=== PATIENT | male | born 1980 | race Caucasian/White ===

== ENCOUNTER 2017-08-26 13:15 | Emergency (ER) | payer OTHER ==
[~2017-08-26] VITALS: Ht 177.8 cm; Wt 102.1 kg
[~2017-08-26 13:15] MED LIST: no home medications
--- NOTE | 2017-08-26 13:49 | PHYS DOC ---
Past History Past Medical History: No Pertinent History Past Surgical History: Appendectomy, Other Alcohol Use: None Drug Use: None Adult General Chief Complaint Chief Complaint: LOWER EXT PAIN HPI HPI 37-year-old male presents with right ankle pain after fall. The patient was walking down the stairs when he began to sneeze. He missed a step with his right foot and did a forward roll down 10 concrete stairs. He landed at the bottom of the stairs and was down his back. He denies hitting his head or losing consciousness. He laid there for a moment to make sure things seemed okay. When he went to stand up he had pain in the right heel. He stayed on the ground for a few minutes and the pain improved. He is able to walk on it but it continues to hurt. The patient has some general mild aching in his back and leg , but he believes this is just from the fall. The pain is minimal. He is only concerned about the ankle at this time. Review of Systems Review of Systems Constitutional: Denies fever or chills [] Eyes: Denies change in visual acuity, redness, or eye pain [] HENT: Denies nasal congestion or sore throat [] Respiratory: Denies cough or shortness of breath [] Cardiovascular: No additional information not addressed in HPI [] GI: Denies abdominal pain, nausea, vomiting, bloody stools or diarrhea [] : Denies dysuria or hematuria [] Musculoskeletal: right ankle pain[] Integument: Denies rash or skin lesions [] Neurologic: Denies headache, focal weakness or sensory changes [] Endocrine: Denies polyuria or polydipsia [] All other systems were reviewed and found to be within normal limits, except as documented in this note. Allergies Allergies Allergies Coded Allergies Type Severity Reaction Last Updated Verified No Known Drug Allergies 08/08/14 No Physical Exam Physical Exam Constitutional: Well developed, well nourished, no acute distress, non-toxic appearance. [] HENT: Normocephalic, atraumatic, bilateral external ears normal, oropharynx moist, no oral exudates, nose normal. [] Eyes: PERRLA, EOMI, conjunctiva normal, no discharge. [] Neck: Normal range of motion, no tenderness, supple, no stridor. [] Cardiovascular:Heart rate regular rhythm, no murmur [] Lungs & Thorax: Bilateral breath sounds clear to auscultation [] Abdomen: Bowel sounds normal, soft, no tenderness, no masses, no pulsatile masses. [] Skin: Warm, dry, no erythema, no rash. [] Back: No tenderness, no CVA tenderness. [] Extremities: Tenderness to the posterior aspect of the right ankle. No bruising or swelling.. [] Neurologic: Alert and oriented X 3, normal motor function, normal sensory function, no focal deficits noted. [] Psychologic: Affect normal, judgement normal, mood normal. [] Current Patient Data Vital Signs Vital Signs Date Time Temp Pulse Resp B/P (MAP) Pulse Ox O2 Delivery O2 Flow Rate FiO2 08/26/17 13:29 98.2 89 18 99 Room Air EKG EKG [] Radiology/Procedures Radiology/Procedures History: Fell down stairs today. Comparison: August 31, 2015. Findings: AP, lateral, and oblique views of the right ankle. No acute fracture or dislocation is identified. No focal soft tissue swelling is seen. Impression: No acute osseous abnormality identified. Electronically signed by: Fox Gonzalez MD (08/26/2017 1:55 PM) [facility][] Course & Med Decision Making Course & Med Decision Making Pertinent Labs and Imaging studies reviewed. (See chart for details) The patient's x-rays negative for fracture. His pain is likely just a contusion based on location and mechanism of injury. He has no other serious injuries. He is stable for discharge. [] Dragon Disclaimer Dragon Disclaimer This electronic medical record was generated, in whole or in part, using a voice recognition dictation system. Departure Departure: Referrals: LAN EL (PCP) RALEIGH JHAVERI DO August 26, 2017 13:49
--- NOTE | 2017-08-26 13:58 | RAD ---
History: Fell down stairs today. Comparison: August 31, 2015. Findings: AP, lateral, and oblique views of the right ankle. No acute fracture or dislocation is identified. No focal soft tissue swelling is seen. Impression: No acute osseous abnormality identified. Electronically signed by: Fox Gonzalez MD (08/26/2017 1:55 PM) [facility]
[2017-08-26 14:28] VITALS: BP 149/80
[2017-08-26] MEDS ORDERED: KETOROLAC 60 MG/2 ML VIAL. IM ONE (15:00)
== END 2017-08-26 14:56 | disposition home or self-care (01) ==
LOC: ER 13:15
DX: S99.911A Unspecified injury of right ankle, initial encounter (principal); W10.8XXA Fall (on) (from) other stairs and steps, initial encounter; Y93.01 Activity, walking, marching and hiking; Y99.8 Other external cause status; Y92.89 Other specified places as the place of occurrence of the external cause
CPT/HCPCS: 73610; 96372; 99284; J1885

== ENCOUNTER 2017-11-02 14:17 | Emergency (ER) | payer BC, OTHER ==
[~2017-11-02] VITALS: Ht 180.3 cm; Wt 104.3 kg
--- NOTE | 2017-11-02 14:56 | ED.ADGEN ---
Past History Past Medical History: No Pertinent History Past Surgical History: Appendectomy, Other Alcohol Use: None Drug Use: None Adult General Chief Complaint Chief Complaint Right foot pain and swelling HPI HPI The patient has a prior history of gout 2 years ago and was well until 2 days ago Friday, when he had onset of right foot pain which has gotten progressively worse. Last night he noted severe right great toe pain. No fevers or trauma. Review of Systems Review of Systems Constitutional: Denies fever or chills Eyes: Denies change in visual acuity, redness, or eye pain HENT: Denies nasal congestion or sore throat Respiratory: Denies cough or shortness of breath Cardiovascular: Denies chest pain GI: Denies abdominal pain, nausea, vomiting, bloody stools or diarrhea : Denies dysuria or hematuria Musculoskeletal: Denies back pain. with right great toe pain and swelling with erythema Integument: Denies rash or skin lesions. Right foot with erythema, warmth and swelling greatest around base of great toe. Neurologic: Denies headache, focal weakness or sensory changes Endocrine: Denies polyuria or polydipsia All other systems were reviewed and found to be within normal limits, except as documented in this note. Current Medications Current Medications Current Medications Medications (Trade) Dose Ordered Sig/[place] Start Time Stop Time Status Last Admin Dose Admin Colchicine (Colcrys) 1.2 mg 1X ONCE 11/02/17 15:25 11/02/17 15:26 DC 11/02/17 15:12 1.2 MG Ketorolac Tromethamine (Toradol) 30 mg 1X ONCE 11/02/17 15:45 11/02/17 15:46 DC 11/02/17 15:33 30 MG Prednisone (Prednisone) 40 mg 1X ONCE 11/02/17 15:30 11/02/17 15:31 DC 11/02/17 15:12 40 MG Allergies Allergies Allergies Coded Allergies Type Severity Reaction Last Updated Verified No Known Drug Allergies 08/08/14 No Physical Exam Physical Exam Constitutional: Well developed, well nourished, no acute distress, non-toxic appearance. HENT: Normocephalic, atraumatic, bilateral external ears normal, oropharynx moist, no oral exudates, nose normal. Eyes: PERRLA, EOMI, conjunctiva normal, no discharge. Neck: Normal range of motion, no tenderness, supple, no stridor. Cardiovascular:Heart rate regular rhythm, no murmur Lungs & Thorax: Bilateral breath sounds clear to auscultation Abdomen: Bowel sounds normal, soft, no tenderness, no masses, no pulsatile masses. Skin: Warm, dry with marked erythema, swelling and tenderness around right 1st MTP joint involving right mid foot Back: No tenderness, no CVA tenderness. Extremities: with right 1st MTP joint tenderness erythema with surrounding erythema and tenderness involving distal mid foot, ROM decreased secondary to pain and swelling, no cyanosis, no clubbing, no edema. Neurologic: Alert and oriented X 3, normal motor function, normal sensory function, no focal deficits noted. Distal sensation intact to light touch and position sense. Psychologic: Affect normal, judgement normal, mood normal. Current Patient Data Vital Signs Vital Signs Date Time Temp Pulse Resp B/P (MAP) Pulse Ox O2 Delivery O2 Flow Rate FiO2 11/02/17 16:30 96 20 144/100 (115) 95 Room Air 11/02/17 14:17 98.1 EKG EKG [] Radiology/Procedures Radiology/Procedures [address] [address] IMAGING REPORT Signed PATIENT: MARVIN BROOKS ACCOUNT: [id number] : 1980 LOCATION: ER AGE: 37 SEX: M EXAM STATUS: PRE ER ORD. PHYSICIAN: BRIAN CORREA MD REASON: pain and swelling PROCEDURE: FOOT RIGHT 3V Three views FOOT RIGHT 3V Clinical History: right foot pain with swelling, no known fall or trauma to right foot, pt shielded Comparison: None. Findings: The visualized osseous structures appear normal. Impression: No acute findings. Electronically signed by: Pravin Drummond III, MD (11/02/2017 3:02 PM) [facility] DICTATED AND SIGNED BY: PRAVIN DRUMMOND III, MD DATE: 11/02/17 [id number] CC: BRIAN CORREA MD; PCP,NO ~ Course & Med Decision Making Course & Med Decision Making Patient presents with right foot pain, swelling and redness at the MTP joint Differential diagnosisgout, DJD, fracture, infection, cellulitis Patient was stable emergency department. Right foot x-rays were unremarkable. 16:30 Patient improved after colchicine, Toradol prednisone with decreased right foot pain consistent with gout. Patient will follow-up with PCP and Orthopedist for further evaluation. Patient was given prescription for colchicine, Motrin, [place] and Keflex Final Impression Final Impression Clinical Impression Acute gouty arthritis of right great toe Right foot cellulitis. Fracisco Disclaimer Fracisco Disclaimer This electronic medical record was generated, in whole or in part, using a voice recognition dictation system. Departure Departure: Impression: Primary Impression: Gouty arthritis of right great toe Additional Impression: Cellulitis of foot, right Disposition: 01 HOME, SELF-CARE Condition: STABLE Referrals: CHELO STANFORD MD Follow-up tomorrow for further evaluation Patient Instructions: Cellulitis, [id number], Gout, [id number] Additional Instructions: Follow-up tomorrow for further evaluation. If you develop worse pain, swelling, redness, fevers, shortness of breath return to the emergency department immediately Scripts Cephalexin (KEFLEX) 500 Mg Capsule 1 CAP PO TID, #21 CAP Prov: BRIAN CORREA MD 11/02/17 Prednisone (PREDNISONE) 20 Mg Tablet 2 TAB PO DAILY for 4 Days, #8 TAB Prov: BRIAN CORREA MD 11/02/17 Hydrocodone Bit/Acetaminophen (NORCO 5-325 TABLET) 1 Each Tablet 1 TAB PO PRN Q6HRS PRN for PAIN for 3 Days, #12 TAB 0 Refills Prov: BRIAN CORREA MD 11/02/17 Ibuprofen (IBUPROFEN) 800 Mg Tablet 1 TAB PO TID for 3 Days, #9 TAB Prov: BRIAN CORREA MD 11/02/17 Colchicine (COLCRYS) 0.6 Mg Tablet 1 TAB PO DAILY for 2 Days, #2 TAB 0 Refills Prov: BRIAN CORREA MD 11/02/17 BRIAN CORREA MD Nov 02, 2017 14:56
--- NOTE | 2017-11-02 15:06 | RAD ---
Three views FOOT RIGHT 3V Clinical History: right foot pain with swelling, no known fall or trauma to right foot, pt shielded Comparison: None. Findings: The visualized osseous structures appear normal. Impression: No acute findings. Electronically signed by: Gustavo Sanderson III, MD (11/02/2017 3:02 PM) [facility]
[2017-11-02] MEDS ORDERED: COLCHICINE 0.6 MG TABLET PO ONE (15:25)
[2017-11-02] MEDS ORDERED: predniSONE 20 MG TABLET PO ONE (15:30)
[2017-11-02] MEDS ORDERED: KETOROLAC 30 MG/ML VIAL. IM ONE (15:45)
[2017-11-02 16:30] VITALS: BP 144/100
[2017-11-02] MEDS ORDERED: IBUP800T19 PO (16:41)
[2017-11-02] MEDS ORDERED: COLC0.6T34 PO (16:41)
[2017-11-02] MEDS ORDERED: CEPH-264 PO (16:41)
[2017-11-02] MEDS ORDERED: PRED20TA PO (16:41)
[2017-11-02] MEDS ORDERED: HYDR-971 PO (16:41)
== END 2017-11-02 16:45 | disposition home or self-care (01) ==
LOC: ER 14:17
DX: M10.9 Gout, unspecified (principal); L03.115 Cellulitis of right lower limb
CPT/HCPCS: 73630; 96372; 99284; J1885; J7512

== ENCOUNTER 2020-03-31 06:15 | Emergency (ER) | payer BC ==
[~2020-03-31] VITALS: Ht 180.3 cm; Wt 100.0 kg
[~2020-03-31 06:15] MED LIST changes: +CEPH-264 PO; +COLC0.6T34 PO; +HYDR-3165 PO; +IBUP800T19 PO; +PRED20TA PO
[2020-03-31] MEDS ORDERED: KETOROLAC 30 MG/ML VIAL. IVP ONE (06:30)
--- NOTE | 2020-03-31 06:30 | PHYS DOC ---
Past History Past Medical History: No Pertinent History Past Surgical History: Appendectomy, Cholecystectomy Additional Past Surgical Histo: bowel resection, umbilical hernia with mesh, mesh removal to biomesh Alcohol Use: Occasionally Drug Use: None General Adult EDM: Chief Complaint: FLANK PAIN HPI: HPI: Patient is a 48-year-old male presents with a chief complaint of left flank pain. Patient states left flank pain started approximately 0330 hours initially in the left flank with radiation to the left lower quadrant. Patient states she has associated nausea but has not vomited Review of Systems: Review of Systems: Constitutional: Denies fever or chills Eyes: Denies change in visual acuity HENT: Denies nasal congestion or sore throat Respiratory: Denies cough or shortness of breath Cardiovascular: Denies chest pain or edema GI: Denies abdominal pain, , vomiting, bloody stools or diarrhea positive nausea : Denies dysuria positive flank pain Musculoskeletal: Denies back pain or joint pain positive flank pain Integument: Denies rash Neurologic: Denies headache, focal weakness or sensory changes Endocrine: Denies polyuria or polydipsia Lymphatic: Denies swollen glands Psychiatric: Denies depression or anxiety Current Medications: Current Meds: Current Medications Medications (Trade) Dose Ordered Sig/[place] Start Time Stop Time Status Last Admin Dose Admin Ketorolac Tromethamine (Toradol 30mg Vial) 30 mg 1X ONCE 03/31/20 06:30 03/31/20 06:31 Allergies: Allergies: Allergies Coded Allergies Type Severity Reaction Last Updated Verified No Known Drug Allergies 08/08/14 No Physical Exam: PE: Constitutional: Well developed, well nourished, no acute distress, non-toxic appearance. [] HENT: Normocephalic, atraumatic, bilateral external ears normal, oropharynx moist, no oral exudates, nose normal. [] Eyes: PERRLA, EOMI, conjunctiva normal, no discharge. [] Neck: Normal range of motion, no tenderness, supple, no stridor. [] Cardiovascular:Heart rate regular rhythm, no murmur [] Lungs & Thorax: Bilateral breath sounds clear to auscultation [] Abdomen: Bowel sounds normal, soft, no tenderness, no masses, no pulsatile masses. [] Skin: Warm, dry, no erythema, no rash. [] Back: No tenderness, no CVA tenderness. [] Extremities: No tenderness, no cyanosis, no clubbing, ROM intact, no edema. [] Neurologic: Alert and oriented X 3, normal motor function, normal sensory function, no focal deficits noted. [] Psychologic: Affect normal, judgement normal, mood normal. [] Current Patient Data: Vital Signs: Vital Signs Date Time Temp Pulse Resp B/P (MAP) Pulse Ox O2 Delivery O2 Flow Rate FiO2 03/31/20 06:17 98.6 93 20 158/106 (123) 97 Room Air EKG: EKG: EKG taken at 0 627 heart rate [address] elevation no ST depression no acute [place] [] Radiology/Procedures: Radiology/Procedures: [] Heart Score: Risk Factors: Risk Factors: DM, Current or recent (<one month) smoker, HTN, HLP, family history of CAD, obesity. Risk Scores: Score 0 - 3: 2.5% MACE over next 6 weeks - Discharge Home Score 4 - 6: 20.3% MACE over next 6 weeks - Admit for Clinical Observation Score 7 - 10: 72.7% MACE over next 6 weeks - Early Invasive Strategies Course & Med Decision Making: Course & Med Decision Making Pertinent Labs and Imaging studies reviewed. (See chart for details) [] Dragon Disclaimer: Dragon Disclaimer: This electronic medical record was generated, in whole or in part, using a voice recognition dictation system. Departure Departure: Impression: Primary Impression: Flank pain Additional Impression: Kidney stones Disposition: 01 DC HOME SELF CARE/HOMELESS Condition: STABLE Referrals: MILLIE ADAMES (PCP) Patient Instructions: Kidney Stones Scripts Hydrocodone Bit/Acetaminophen (NORCO 5-325 TABLET) 1 Each Tablet 1 TAB PO PRN Q6HRS PRN for PAIN, #20 TAB 0 Refills Prov: MONIQUE CORCORAN I DO 03/31/20 Tamsulosin Hcl (FLOMAX) 0.4 Mg Cap.er.24h 0.4 MG PO DAILY, #10 CAP.SR Prov: MONIQUE CORCORAN I DO 03/31/20 MONIQUE CORCORAN I DO Mar 31, 2020 06:30
[2020-03-31] MEDS ORDERED: ONDANSETRON PF 4 MG/2 ML VIAL. IVP ONE (06:45)
[2020-03-31] MEDS ORDERED: IV NORMAL SALINE 1,000ML 1,000 ML IV ONE (06:45)
[2020-03-31 06:52] LABS: CALCIUM 8.5 mg/dL (8.5-10.1); CREATININE 1.5 mg/dL (0.7-1.3); GFR 51.8; POTASSIUM 4.2 mmol/L (3.5-5.1)
[2020-03-31 06:58] LABS: ALBUMIN 3.8 g/dL (3.4-5.0); ALBUMIN/GLOBULIN RATIO 1.2 (1.0-1.7); TOTAL BILIRUBIN 0.2 mg/dL (0.2-1.0); TOTAL PROTEIN 7.1 g/dL (6.4-8.2)
[2020-03-31] MEDS ORDERED: MORPHINE SULFATE 4 MG/ML DISP.SYRIN. IV ONE (07:00)
--- NOTE | 2020-03-31 07:33 | RAD ---
Examination: CT of the abdomen pelvis without contrast HISTORY: History of left flank pain COMPARISON: 08/08/2014 TECHNIQUE: Axial CT images of the abdomen pelvis were performed without IV contrast. Coronal and sagi ttal reformats performed Exposure: One or more of the following individualized dose reduction techniques were utilized for thi s examination: 1. Automated exposure control 2. Adjustment of the mA and/or kV according to patient size 3. Use of iterative reconstruction technique FINDINGS: The bibasilar lungs are clear. No evidence of free air identified in the abdomen. Mild decreased atte nuation noted in the liver likely steatosis. The spleen, adrenals grossly appears unremarkable. The g allbladder is not identified. The stomach is mildly distended. Visualized pancreas grossly appears unremarkable. The small bowel is nondilated. Feces and gas noted in the colon. There is fluid density collection i dentified just deep to the anterior abdominal wall measuring 7.7 x 2.2 x 4.0 cm and measuring 35 Houn sfield units. Mild left-sided hydronephrosis and hydroureter identified with a 3 mm calculus identified in the dist al left ureter just proximal to the left uterovesical junction. Punctate 2 mm calculus right kidney. Mild degenerative changes thoracolumbar spine. IMPRESSION: 1. Punctate 3 mm calculus distal left ureter just proximal to the left uterovesical junction causing mild left sided hydronephrosis and hydroureter identified. 2. There is a fluid collection identified deep to the anterior abdominal wall in the midline measurin g 35 Hounsfield units could be chronic hematoma or seroma. Correlate for prior abdominal surgery. 3. Hepatic steatosis. 4. Punctate 2 mm calculus right kidney. Electronically signed by: Kolton Ansari MD (03/31/2020 7:31 AM) [id number]
[2020-03-31] MEDS ORDERED: HYDR-3165 PO (07:53)
[2020-03-31] MEDS ORDERED: TAMS0.4C97 PO (07:53)
[2020-03-31 08:00] VITALS: BP 163/92
[2020-03-31] MEDS ORDERED: TAMSULOSIN 0.4 MG CAP.ER.24H. PO ONE (08:00)
[2020-03-31] MEDS ORDERED: HYDROcodone/APAP 5/325MG 1 TAB TABLET PO ONE (08:15)
[2020-03-31 08:40] LABS: COLOR,URINE YELLOW
[2020-03-31 08:41] LABS: BILIRUBIN,URINE NEG (NEG); CLARITY,URINE HAZY; GLUCOSE,URINE NEG (NEG); NITRITE,URINE NEG (NEG); UROBILINOGEN,URINE 0.2 mg/dL (0.2 mg/dL)
[2020-03-31 08:44] LABS: RBC,URINE >40 /HPF (0-2)
[2020-03-31 08:45] LABS: BACTERIA,URINE 0 /HPF (0-FEW); SQUAMOUS EPITHELIAL CELL,UR OCC /LPF
--- NOTE | 2020-03-31 13:53 | EKG ---
[facility] ED [facility] [address] [place] [id number] Test Date: 2020-03-31 Test Time: 06:27:20 Pat Name: MARVIN BROOKS Department: Room: Gender: M Independent Driver: : 1980 Requested By: MONIQUE CORCORAN Order Number: [id number] Reading MD: Measurements Intervals [place] Rate: 75 P: 36 PA: 186 QRS: 45 QRSD: 96 T: 44 QT: 352 QTc: 396 Interpretive Statements SINUS RHYTHM NO SPECIFIC ECG ABNORMALITIES RI6.02 No previous ECG available for comparison
== END 2020-03-31 08:25 | disposition home or self-care (01) ==
LOC: ER 06:15
DX: N20.0 Calculus of kidney (principal); Z90.49 Acquired absence of other specified parts of digestive tract; Z90.89 Acquired absence of other organs
CPT/HCPCS: 36415; 74176; 80053; 81001; 93005; 96361; 96374; 96375; 99285; J1885; J2270; J2405; J7030